=== PATIENT | male | born 1990 | race Caucasian/White ===

== ENCOUNTER 2023-10-16 19:10 | Emergency (ER) | payer OTHER, SELFPAY ==
[2023-10-16 19:11] VITALS: BP 167/114; BMI 40.1
[2023-10-16 19:27] VITALS: BP 144/99
[2023-10-16] MEDS: ADRENALIN 0.299999999999999989 MG IM (19:34)
[2023-10-16] MEDS: DECADRON 10 MG IV (19:42)
[2023-10-16] MEDS: PEPCID 20 MG IV (19:43)
[2023-10-16] MEDS: NSS 1000 IV (19:43)
[2023-10-16 20:00] VITALS: BP 143/99
--- NOTE | 2023-10-16 20:22 | ED.GENMED ---
History of Present Illness
General
Chief Complaint: Allergic Reaction
Source: patient
Time Seen by Provider: 10/16/23 19:33
Travel History
Have you had any contact with someone who has COVID-19?: No
Do you have any symptoms of coronavirus? Fever > 100 degrees, chills, cough, shortness of breath, sore throat, loss of taste or smell, muscle aches, or headache?: No
History of Present Illness
History of Present Illness:
43-year-old male presents emergency room complaining of a allergic reaction. Patient was eating at a [employer] restaurant. He states he was to be receiving food from a 'fish free grill'. Evidently there was some exposure to fish as when he consumed
his food immediately began having symptoms of an allergic reaction. Patient is also allergic to fish. He began having difficulty speaking, lip swelling, rash and itching on his way home from dinner. Patient does have an EpiPen but it was not with
him at the time.
Past History
Past History
ED Past Medical History: Asthma, HTN, Seizures, Psychiatric (Anxiety, Depression, PTSD), Other (TBI, CTE, chronic headaches, chronic neck and back pain, h/o B12 deficiency in 2014, bladder incontinence treated at [place], R hip infection at 5 y/o
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
ED Past Surgical History: Appendectomy, Orthopedic (L3-4 dislocation w/ surgery w/o hardware, Pain pump back), Urological (Urethra widening as child) and Other (Abd surgery, Tongue surgery)
Patient has exhibited threatening behavior?: No
PSI?: No
Social History
Tobacco: Former smoker
Alcohol: None
Drug: None
Personal:
Living: with family
Employment: Employed ([employer])
Family History
Family History: Diabetes and CAD; Negative Early CAD
Phy Exam
Physical Exam
Physical Exam:
General: Awake, Alert, Oriented X3. No acute distress.
Vitals: unremarkable
Head: Atraumatic
Eyes: Pupils equal, EOMI
Mouth: No oral angioedema, mild lip swelling and facial flushing
Throat: Airway intact, no exudates, hoarse voice
Neck: Trachea midline
Lungs: Clear and equal b/l
Heart: Regular rate, no murmurs
Abd: Soft, Nontender, No pulsatile mass
Neuro: Nonfocal
Skin: Warm, dry, blotchy urticarial rash
Extremities: pulses equal b/l, no edema
Course
Orders/Labs/Results
Orders:
Orders
10/16/23 19:28
EPINEPHrine PF [Adrenalin] 0.3 mg IM NOW STA
10/16/23 19:34
0.9% Sodium Chloride 1000 ml [Nss] 1,000 ml IV BOLUS
Dexamethasone Sod Phosphate [Decadron] 10 mg IV NOW STA
Famotidine [Pepcid] 20 mg IV NOW STA
Vital Signs
Initial and Last Documented VS:
Initial Vital Signs
Temp Pulse Resp BP Pulse Ox
98.8 F 112 30 167/114 95
10/16/23 19:11 10/16/23 19:11 10/16/23 19:11 10/16/23 19:11 10/16/23 19:11
Last Documented Vital Signs
Temp Pulse Resp BP Pulse Ox
98.8 F 104 13 142/84 95
10/16/23 19:11 10/16/23 22:30 10/16/23 22:30 10/16/23 22:00 10/16/23 22:30
MDM/Problems Addressed
Differential Diagnosis Includes:
Allergic reaction, anaphylactic reaction
MDM/Problems Addressed:
Patient presents with rash, facial swelling, sensation of throat closing. Patient significant, Benadryl, Pepcid. He was observed for couple hours with no rebound. Patient anxious to go home. Will discharge with a EpiPen prescription as well as
prednisone.
*Pulse Oximetry
Patient hypoxic: no
*Critical Care Note
Total Time (30-74mins, 75-104mins- exclusive of procedures): Not Applicable
ED Attending Note
-
Portions of this chart may have been created with voice recognition software.� Occasional wrong word or��sound alike� substitutions may have occurred due to the inherent limitations of voice recognition software.
Discharge Plan
Departure
Patient Disposition: Home (Routine Discharge)
Date of Disposition: 10/16/23
Time of Disposition: 22:16
Patient with high blood pressure during this ER visit?: Yes
Condition: Good
Discharge Problem:
Allergic reaction
Instructions: Allergic Reaction ED
Prescriptions:
New
epinephrine [EpiPen] 0.3 mg/0.3 mL auto-injector
0.3 mg IM ONCE PRN (Reason: anaphylaxis) Qty: 2 0RF
prednisone 20 mg tablet
40 mg PO DAILY 3 Days Qty: 6 0RF
No Action
ondansetron 4 MG tablet,disintegrating
8 mg PO TID PRN (Reason: nausea)
famotidine 40 mg Tablet
40 mg PO DAILY
fenofibrate micronized 67 mg Capsule
67 mg PO DAILY
Ubrelvy 50 mg Tablet
50 mg PO ONCE PRN (Reason: migraines)
Rx Instructions:
Max 10 days per month
celecoxib 200 mg capsule
100 mg PO BID
amitriptyline 50 mg Tablet
100 mg PO HS
cyanocobalamin (vitamin B-12) 1,000 mcg/mL solution
1,000 mcg IM TID
fluticasone propionate [Flovent HFA] 220 mcg/actuation HFA aerosol inhaler
2 puff inhalation R BID
azelastine 137 mcg (0.1 %) aerosol,spray
2 spray INTRANASAL BID PRN (Reason: allergies)
albuterol sulfate 90 mcg/actuation HFA aerosol inhaler
2 puff INHALATION R Q6 PRN (Reason: sob/wheezing)
rosuvastatin 10 mg tablet
10 mg PO HS
nebivolol 5 mg tablet
5 mg PO DAILY
Morphine/Clonidine Pain Pump
1 dose continuous epidural .CONTINUOUS
pantoprazole [Protonix] 40 mg tablet,delayed release (DR/EC)
40 mg PO HS
pregabalin 100 mg Capsule
100 mg PO HS Qty: 30 0RF
lacosamide 200 mg Tablet
200 mg PO BID Qty: 60 0RF
diazepam 2 mg Tablet
1 mg PO HSPRN PRN (Reason: insomnia, hold if drowsy) Qty: 10 0RF
Referrals:
UNKNOWN - PT DOES,NOT KNOW [Unknown Provider] -
Interventions
Interventions:
*Risk Screen - Suicide Last Done: 10/16/23 19:11
*General Assessment Last Done: 10/16/23 19:11
*Neglect/Abuse Screening Last Done: 10/16/23 19:11
ED- Fall Risk Assessment Last Done: 10/16/23 22:37
*ED COVID-19 Vaccine History Last Done: 10/16/23 19:11
*Nursing Disposition Last Done: 10/16/23 22:38
ED- Cardiac Assessment Last Done: 10/16/23 19:20
ED- Pulmonary Assessment Last Done: 10/16/23 19:20
ED-Skin Assessment Last Done: 10/16/23 19:20
Discharge Date and Time
Discharge Date/Time: 10/16/23 22:38
Print Language: AFGHAN
[2023-10-16 21:00] VITALS: BP 156/80
[2023-10-16 22:00] VITALS: BP 142/84
== END 2023-10-16 22:38 | disposition home or self-care (01) ==
LOC: EMR 19:10
PROVIDERS: EMERGENCY PHYSICIAN Emergency Medicine; FAMILY PHYSICIAN Family Medicine
DX: T78.40XA Allergy, unspecified, initial encounter (principal); I10 Essential (primary) hypertension; Z87.891 Personal history of nicotine dependence
CPT/HCPCS: 99284; 96374; 96375; 96361 ×2; 96372

== ENCOUNTER 2024-02-01 18:51 | Emergency (ER) | payer OTHER, SELFPAY ==
[2024-02-01 18:56] VITALS: BP 174/118
[2024-02-01 19:14] LABS: % Basophils 0.5 % (0-2); % Eosinophils 1.1 % (0-6); % Immature Granulocytes 0.4 % (0-0.5); % Lymphocytes 23.6 % (20.5-51.1); % Monocytes 4.7 % (1.7-9.3); % Neutrophils 69.7 % (42.2-75.2); Absolute Basophils 0.1 10^3/uL (0-0.2); Absolute Eosinophils 0.1 10^3/uL (0-0.7); Absolute Immature Granulocytes 0.1 10^3/uL (0-0.05); Absolute Lymphocytes 2.7 10^3/uL (1.2-3.4); Absolute Monocytes 0.5 10^3/uL (0.1-0.6); Absolute Neutrophils 7.8 10^3/uL (1.4-6.5); Hemoglobin 14.9 g/dL (13.0-18.0); Mean Corp Hgb Conc. 37.3 g/dL (33.0-37.0); Mean Corpuscular Hgb 31.7 pg (27.0-31.0); Mean Corpuscular Volume 85.1 fL (80.0-94.0); Mean Platelet Volume 9.3 fL (7.4-10.4); Nucleated Red Blood Cells % 0 % (-); Platelet Count 305 10^3/uL (130-400); Red Cell Dist. Width 11.6 % (11.5-14.5); White Blood Cell Count 11.2 10^3/uL (4.8-10.8)
[2024-02-01 19:38] LABS: ALT (SGPT) 34 U/L (0-50); AST (SGOT) 26 U/L (17-59); Albumin 4.6 g/dl (3.5-5.0); Alkaline Phosphatase 81 U/L (38-126); Blood Urea Nitrogen 15 mg/dl (9-20); Calcium 9.4 mg/dl (8.4-10.2); Carbon Dioxide 24 mmol/L (22-30); Chloride 102 mmol/L (98-107); Glucose 167 mg/dl (70-99); Potassium 3.6 mmol/L (3.5-5.1); Sodium 137 mmol/L (135-145); Total Bilirubin 0.7 mg/dl (0.2-1.3); Total Protein 6.8 g/dl (6.3-8.2); eGFR > 60.00
[2024-02-01 19:45] LABS: Troponin I < 0.012 ng/ml
[2024-02-01 20:08] VITALS: BMI 39.2
[2024-02-01 20:13] VITALS: BP 154/114
[2024-02-01 20:14] VITALS: BP 154/114
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
[2024-02-01 21:00] VITALS: BP 139/99
[2024-02-01 22:00] VITALS: BP 125/107
[2024-02-01 22:24] LABS: Urine Albumin Trace (Neg - Trace); Urine Bilirubin 1+ (Negative); Urine Character Clear (Clear); Urine Color Yellow; Urine Glucose Negative (Negative); Urine Ketone Trace (Negative); Urine Leukocyte Trace (Negative); Urine Nitrite Negative (Negative); Urine Occult Blood Negative (Negative); Urine Specific Gravity 1.025 (<1.030); Urine Urobilinogen Negative (Neg - 1+)
[2024-02-01 23:00] LABS: Troponin I < 0.012 ng/ml
[2024-02-01 23:04] VITALS: BP 153/114
[2024-02-01 23:12] LABS: Urine Red Blood Cell 0-2 /HPF (0-2)
[2024-02-02] VITALS: BP 143/96
[2024-02-02] MEDS: MONUROL 3 GM PO (00:29)
== END 2024-02-02 00:32 | disposition home or self-care (01) ==
LOC: EMR 18:51
PROVIDERS: Student in an Organized Health Care Education/Training Program; EMERGENCY PHYSICIAN Student in an Organized Health Care Education/Training Program; FAMILY PHYSICIAN Family Medicine
DX: R07.89 Other chest pain (principal); N39.0 Urinary tract infection, site not specified; I10 Essential (primary) hypertension; Z87.891 Personal history of nicotine dependence
CPT/HCPCS: 99285; 70450; 80053; 81003; 81015; 84484; 85025; 87086; 93005

== ENCOUNTER → 2024-07-01 06:29 | Day surgery (SDC) | payer OTHER, SELFPAY ==
[2024-07-01 14:10] LABS: Glucose - Point of Care 145 mg/dl (70-99)
[2024-07-01 14:49] LABS: Glucose - Point of Care 125 mg/dl (70-99)
== END ==
LOC: GI 06:29
PROVIDERS: ATTENDING PHYSICIAN Internal Medicine Gastroenterology; FAMILY PHYSICIAN Family Medicine
DX: K29.80 Duodenitis without bleeding (principal); K31.89 Other diseases of stomach and duodenum; R10.13 Epigastric pain; R11.0 Nausea
CPT/HCPCS: 43239; 88305; 82962; 88342

== ENCOUNTER → 2024-07-30 06:22 | Day surgery (SDC) | payer OTHER, SELFPAY ==
[2024-07-30 07:37] LABS: Glucose - Point of Care 140 mg/dl (70-99)
== END ==
LOC: GI 06:22
PROVIDERS: ATTENDING PHYSICIAN Internal Medicine Gastroenterology
DX: R19.4 Change in bowel habit (principal); K64.8 Other hemorrhoids; K57.30 Diverticulosis of large intestine without perforation or abscess without bleeding; Z80.0 Family history of malignant neoplasm of digestive organs
CPT/HCPCS: 45380; 88305; 82962

== ENCOUNTER 2024-08-16 23:51 | Emergency (ER) | payer OTHER, SELFPAY ==
[2024-08-16 23:56] VITALS: BP 170/102
[2024-08-17 00:38] VITALS: BP 153/99
[2024-08-17 00:44] LABS: % Basophils 0.6 % (0-2); % Eosinophils 1.8 % (0-6); % Immature Granulocytes 1.4 % (0-0.5); % Lymphocytes 28.6 % (20.5-51.1); % Monocytes 5.8 % (1.7-9.3); % Neutrophils 61.8 % (42.2-75.2); Absolute Basophils 0.1 10^3/uL (0-0.2); Absolute Eosinophils 0.2 10^3/uL (0-0.7); Absolute Immature Granulocytes 0.2 10^3/uL (0-0.05); Absolute Monocytes 0.6 10^3/uL (0.1-0.6); Absolute Neutrophils 6.5 10^3/uL (1.4-6.5); Hemoglobin 13.7 g/dL (13.0-18.0); Mean Corp Hgb Conc. 36.1 g/dL (33.0-37.0); Mean Platelet Volume 9.6 fL (7.4-10.4); Nucleated Red Blood Cells % 0 % (-); Platelet Count 279 10^3/uL (130-400); Red Blood Cell Count 4.42 10^6/uL (4.70-6.10); Red Cell Dist. Width 11.9 % (11.5-14.5); White Blood Cell Count 10.5 10^3/uL (4.8-10.8)
[2024-08-17 00:56] VITALS: BMI 39.4
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
[2024-08-17 01:00] VITALS: BP 163/97
[2024-08-17 01:12] LABS: Troponin I < 0.012 ng/ml
[2024-08-17] MEDS: SOLU-CORTEF 200 MG IV (01:15)
[2024-08-17 01:17] LABS: ALT (SGPT) 31 U/L (0-50); AST (SGOT) 25 U/L (17-59); Albumin 4.1 g/dl (3.5-5.0); Alkaline Phosphatase 88 U/L (38-126); Blood Urea Nitrogen 22 mg/dl (9-20); Carbon Dioxide 27 mmol/L (22-30); Chloride 98 mmol/L (98-107); Estimated Creatinine Clearance > 125 ml/min; Glucose 185 mg/dl (70-99); Lipase 77 U/L (23-300); Potassium 3.5 mmol/L (3.5-5.1); Sodium 137 mmol/L (135-145); Total Bilirubin 0.4 mg/dl (0.2-1.3); Total Protein 6.5 g/dl (6.3-8.2); eGFR > 60.00
[2024-08-17] MEDS: BENADRYL 50 MG IV (01:17)
[2024-08-17] MEDS: MORPHINE SULFATE 4 MG IV ×2 (01:17→02:49)
[2024-08-17 02:40] VITALS: BP 142/96
[2024-08-17 03:00] VITALS: BP 136/89
== END 2024-08-17 04:10 | disposition home or self-care (01) ==
LOC: EMR 23:51
PROVIDERS: Emergency Medicine; EMERGENCY PHYSICIAN Emergency Medicine; FAMILY PHYSICIAN Family Medicine
DX: R07.9 Chest pain, unspecified (principal); G89.29 Other chronic pain; M54.9 Dorsalgia, unspecified; I10 Essential (primary) hypertension; J45.909 Unspecified asthma, uncomplicated; Z87.891 Personal history of nicotine dependence; Z87.820 Personal history of traumatic brain injury
CPT/HCPCS: 99284; 96374; 96375; 96376; 71275; 74174; 80053; 83690; 84484; 85025; 93005; Q9967

== ENCOUNTER → 2024-08-26 14:15 | Outpatient (REF) | payer OTHER, SELFPAY | LOC: HWRAD 14:15 | PROVIDERS: ATTENDING PHYSICIAN Neurological Surgery; FAMILY PHYSICIAN Family Medicine | DX: R10.9 Unspecified abdominal pain (principal); T85.840A Pain due to nervous system prosthetic devices, implants and grafts, initial encounter | CPT/HCPCS: 74150 ==

== ENCOUNTER 2024-12-10 12:01 | Emergency (ER) | payer OTHER, SELFPAY ==
[2024-12-10 12:12] VITALS: BP 146/95
[2024-12-10 12:26] LABS: % Basophils 0.5 % (0-2); % Eosinophils 2.8 % (0-6); % Immature Granulocytes 0.1 % (0-0.5); % Lymphocytes 24.5 % (20.5-51.1); % Monocytes 5.3 % (1.7-9.3); % Neutrophils 66.8 % (42.2-75.2); Absolute Eosinophils 0.2 10^3/uL (0-0.7); Absolute Lymphocytes 1.8 10^3/uL (1.2-3.4); Absolute Monocytes 0.4 10^3/uL (0.1-0.6); Hemoglobin 14.4 g/dL (13.0-18.0); Mean Corp Hgb Conc. 34.3 g/dL (33.0-37.0); Mean Corpuscular Hgb 30.3 pg (27.0-31.0); Mean Corpuscular Volume 88.2 fL (80.0-94.0); Mean Platelet Volume 9.3 fL (7.4-10.4); Nucleated Red Blood Cells % 0 % (-); Platelet Count 289 10^3/uL (130-400); Red Blood Cell Count 4.76 10^6/uL (4.70-6.10); Red Cell Dist. Width 11.5 % (11.5-14.5); White Blood Cell Count 7.4 10^3/uL (4.8-10.8)
[2024-12-10 12:45] LABS: ALT (SGPT) 63 U/L (0-50); AST (SGOT) 34 U/L (17-59); Albumin 4.7 g/dl (3.5-5.0); Alkaline Phosphatase 90 U/L (38-126); Blood Urea Nitrogen 12 mg/dl (9-20); Calcium 9.3 mg/dl (8.4-10.2); Carbon Dioxide 28 mmol/L (22-30); Chloride 105 mmol/L (98-107); Glucose 102 mg/dl (70-99); Lipase 61 U/L (23-300); Potassium 4.2 mmol/L (3.5-5.1); Sodium 141 mmol/L (135-145); Total Bilirubin 0.7 mg/dl (0.2-1.3); Total Protein 7.6 g/dl (6.3-8.2); eGFR > 60.00
[2024-12-10 13:51] VITALS: BMI 39.9
[2024-12-10 14:00] VITALS: BP 136/86
--- NOTE | 2024-12-10 14:07 | ED.GENMED ---
History of Present Illness
General
Chief Complaint: Abdominal Symptoms
Source: patient
Exam Limitations: none
Time Seen by Provider: 12/10/24 13:56
History of Present Illness
History of Present Illness:
34yoM with a history of seizures, type 2 diabetes, hyperlipidemia, obesity, and chronic back pain with intrathecal pain pump presenting for evaluation of vomiting. Patient was started on Mounjaro about a month ago for his diabetes and for weight
loss. He has had issues with constipation since then. He is only passing a small amount of stool at a time but feels the urge to have a bowel movement constantly. He has tried OTC laxatives without any improvement. Last bowel movement was 48
hours ago. He had two episodes of vomiting this morning which appeared similar to feces and was also foul tasting. He subsequently developed some abdominal pain, primarily in the RUQ. He is passing flatus. He denies any fevers or difficulty
urinating. Previous abdominal surgeries include an appendectomy and cholecystectomy.
Past History
Past History
ED Past Medical History: Asthma, HTN, Seizures, Psychiatric (Anxiety, Depression, PTSD), Other (TBI, CTE, chronic headaches, chronic neck and back pain, h/o B12 deficiency in 2015, bladder incontinence treated at [facility], R hip infection at 5 y/o
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
ED Past Surgical History: Appendectomy, Orthopedic (L3-4 dislocation w/ surgery w/o hardware, Pain pump back), Urological (Urethra widening as child) and Other (Abd surgery, Tongue surgery)
Patient has exhibited threatening behavior?: No
PSI?: No
Social History
Tobacco: Former smoker
Alcohol: None
Drug: None
Personal:
Living: with family
Employment: Employed ([employer])
Family History
Family History: Diabetes and CAD; Negative Early CAD
Phy Exam
General Physical Exam
General Presentation: well appearing and no apparent distress
General Skin: warm and dry
General Habitus: normal
General Mental: alert
ENT Exam
ENT Exam: normocephalic
Pulmonary Exam
Pulmonary Exam: no respiratory distress
Gastrointestinal Exam
Gastrointestinal Exam: soft, non distended and other (Abdomen obese. Normoactive bowel sounds. +Generalized tenderness, worse in the RUQ. No rebound or guarding.)
Neurological Exam
Neurological Exam: alert
Cohagen Coma Scale
Eye Opening: Spontaneous
Verbal Response: Oriented
Motor Response: Obeys Commands
GCS Total Score: 15
Skin Exam
Skin Exam: normal color and warm/dry
Psychiatric Exam
Psychiatric Exam: normal mood/affect
Course
Orders/Labs/Results
Orders:
Orders
12/10/24 12:18
Complete Blood Count/With Diff Urgent
Comprehensive Metabolic Panel Urgent
Lipase Urgent
12/10/24 14:05
0.9% Sodium Chloride 1000 ml [Nss] 1,000 ml IV BOLUS
12/10/24 14:06
CT Abd/pelvis W Iv Cont Urgent
Comment:
Reason For Exam: R sided abd pain, constipation, vomiting
Diphenhydramine [Benadryl] 50 mg IV NOW STA
Hydrocortisone Sod Succinate [Solu-Cortef] 200 mg IV NOW STA
Ondansetron Injectable [Zofran] 4 mg IV NOW STA
Abnormal Lab Results
12/10/24
12:18
Glucose 102 H mg/dl
(70-99)
ALT 63 H U/L
(0-50)
12/10/24 12:18
12/10/24 12:18
Vital Signs
Initial and Last Documented VS:
Initial Vital Signs
Pulse Resp Pulse Ox
72 16 99
12/10/24 12:10 12/10/24 12:10 12/10/24 12:10
Last Documented Vital Signs
Temp Pulse Resp BP Pulse Ox
97.8 F 68 16 136/75 98
12/10/24 12:12 12/10/24 14:00 12/10/24 14:00 12/10/24 16:00 12/10/24 16:00
MDM/Problems Addressed
Differential Diagnosis Includes:
34yoM here with vomiting x 2 today with RUQ abd pain. Has been constipated x 1 month since starting Mounjaro. Emesis was foul tasting and appeared feculent. Hx of appendectomy and cholecystectomy. VSS. He is non-toxic appearing. No signs of
peritonitis on abdominal exam. Differential diagnosis includes but is not limited to: constipation, SBO, colitis, pancreatitis
Initial ED plan: Abdominal labs obtained in triage which are unremarkable. Will obtain CT abdomen with IV contrast. Pretreatment ordered given prior history of contrast allergy.
*Critical Care Note
Total Time (30-74mins, 75-104mins- exclusive of procedures): Not Applicable
Update Note
Update Note:
CT is negative for acute findings. Specifically, there is no evidence of small bowel obstruction. No significant constipation or fecal impaction on my review of CT. There has been no vomiting during ED stay. No indication for hospitalization.
Recommended magnesium citrate for constipation and f/u with PCP. Patient discharged in stable condition.
ED Attending Note
-
Portions of this chart may have been created with voice recognition software.� Occasional wrong word or��sound alike� substitutions may have occurred due to the inherent limitations of voice recognition software.
Discharge Plan
Departure
Patient Disposition: Home (Routine Discharge)
Date of Disposition: 12/10/24
Time of Disposition: 16:14
Patient with high blood pressure during this ER visit?: Yes
Discharge Problem:
Abdominal pain, Constipation
Instructions: Constipation, Adult (DC)
Prescriptions:
No Action
ondansetron 4 MG tablet,disintegrating
8 mg PO TID PRN (Reason: nausea)
famotidine 40 mg Tablet
40 mg PO DAILY
fenofibrate micronized 67 mg Capsule
67 mg PO DAILY
Ubrelvy 50 mg Tablet
50 mg PO ONCE PRN (Reason: migraines)
Rx Instructions:
Max 10 days per month
celecoxib 200 mg capsule
100 mg PO BID
amitriptyline 50 mg Tablet
100 mg PO HS
cyanocobalamin (vitamin B-12) 1,000 mcg/mL solution
1,000 mcg IM TID
fluticasone propionate [Flovent HFA] 220 mcg/actuation HFA aerosol inhaler
2 puff inhalation R BID
azelastine 137 mcg (0.1 %) aerosol,spray
2 spray INTRANASAL BID PRN (Reason: allergies)
albuterol sulfate 90 mcg/actuation HFA aerosol inhaler
2 puff INHALATION R Q6 PRN (Reason: sob/wheezing)
rosuvastatin 10 mg tablet
10 mg PO HS
nebivolol 5 mg tablet
5 mg PO DAILY
Morphine/Clonidine Pain Pump
1 dose continuous epidural .CONTINUOUS
pantoprazole [Protonix] 40 mg tablet,delayed release (DR/EC)
40 mg PO HS
pregabalin 100 mg Capsule
100 mg PO HS Qty: 30 0RF
lacosamide 200 mg Tablet
200 mg PO BID Qty: 60 0RF
diazepam 2 mg Tablet
1 mg PO HSPRN PRN (Reason: insomnia, hold if drowsy) Qty: 10 0RF
epinephrine [EpiPen] 0.3 mg/0.3 mL auto-injector
0.3 mg IM ONCE PRN (Reason: anaphylaxis) Qty: 2 0RF
prednisone 20 mg tablet
40 mg PO DAILY 3 Days Qty: 6 0RF
Referrals:
Andressa Foy DO [Family Provider] -
Activity Restrictions/Additional Instructions:
Increase your fluid and fiber intake. Take magnesium citrate to help with your constipation.
Please follow-up with your family doctor in 2-3 days. Return to the ER with any new or worsening symptoms.
Interventions
Interventions:
*Risk Screen - Suicide Last Done: 12/10/24 14:01
*General Assessment Last Done: 12/10/24 13:52
*Neglect/Abuse Screening Last Done: 12/10/24 14:01
*ED- Fall Risk Assessment Last Done: 12/10/24 13:52
*ED COVID-19 Vaccine History Last Done: 12/10/24 13:52
*Nursing Disposition Last Done: 12/10/24 16:36
[facility] Assessment Last Done: 12/10/24 14:01
Discharge Date and Time
Discharge Date/Time: 12/10/24 16:40
Print Language: YORUBA
[2024-12-10] MEDS: BENADRYL 50 MG IV (14:21)
[2024-12-10] MEDS: ZOFRAN 4 MG IV (14:21)
[2024-12-10] MEDS: NSS 1000 IV (14:21)
[2024-12-10] MEDS: SOLU-CORTEF 200 MG IV (14:22)
[2024-12-10 15:00] VITALS: BP 160/101
[2024-12-10 15:50] VITALS: BP 148/79
[2024-12-10 16:00] VITALS: BP 136/75
== END 2024-12-10 16:40 | disposition home or self-care (01) ==
LOC: EMR 12:01
PROVIDERS: Emergency Medicine; EMERGENCY PHYSICIAN Emergency Medicine; FAMILY PHYSICIAN Family Medicine
DX: R10.9 Unspecified abdominal pain (principal); K59.00 Constipation, unspecified; I10 Essential (primary) hypertension; E11.9 Type 2 diabetes mellitus without complications; E78.5 Hyperlipidemia, unspecified; E66.9 Obesity, unspecified; Z68.39 Body mass index [BMI] 39.0-39.9, adult; Z87.891 Personal history of nicotine dependence
CPT/HCPCS: 99285; 96374; 96375 ×2; 96361; 74177; 80053; 83690; 85025; Q9967

== ENCOUNTER 2024-12-27 21:09 | Emergency (ER) | payer OTHER, SELFPAY ==
[2024-12-27 21:19] VITALS: BP 178/105
[2024-12-27 21:38] LABS: % Basophils 0.4 % (0-2); % Eosinophils 3.1 % (0-6); % Immature Granulocytes 0.3 % (0-0.5); % Lymphocytes 23.9 % (20.5-51.1); % Monocytes 5.5 % (1.7-9.3); % Neutrophils 66.8 % (42.2-75.2); Absolute Eosinophils 0.3 10^3/uL (0-0.7); Absolute Lymphocytes 2.2 10^3/uL (1.2-3.4); Absolute Monocytes 0.5 10^3/uL (0.1-0.6); Absolute Neutrophils 6.3 10^3/uL (1.4-6.5); Hematocrit 39.2 % (39.0-52.0); Hemoglobin 14.1 g/dL (13.0-18.0); Mean Corpuscular Hgb 30.9 pg (27.0-31.0); Mean Platelet Volume 9.1 fL (7.4-10.4); Nucleated Red Blood Cells % 0 % (-); Platelet Count 302 10^3/uL (130-400); Red Blood Cell Count 4.56 10^6/uL (4.70-6.10); Red Cell Dist. Width 11.4 % (11.5-14.5); White Blood Cell Count 9.4 10^3/uL (4.8-10.8)
[2024-12-27 21:42] VITALS: BMI 39.1
[2024-12-27 21:47] VITALS: BP 122/82
[2024-12-27 21:57] LABS: ALT (SGPT) 42 U/L (0-50); AST (SGOT) 24 U/L (17-59); Albumin 4.3 g/dl (3.5-5.0); Alkaline Phosphatase 82 U/L (38-126); Blood Urea Nitrogen 20 mg/dl (9-20); Calcium 9.1 mg/dl (8.4-10.2); Carbon Dioxide 26 mmol/L (22-30); Chloride 108 mmol/L (98-107); Estimated Creatinine Clearance > 125 ml/min; Glucose 115 mg/dl (70-99); Sodium 142 mmol/L (135-145); Total Bilirubin 0.6 mg/dl (0.2-1.3); eGFR > 60.00
[2024-12-27 22:00] VITALS: BP 118/78
[2024-12-27 22:13] LABS: COVID-19 Antigen Negative (Negative)
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
[2024-12-27 23:00] VITALS: BP 118/65
[2024-12-27 23:45] LABS: Urine Albumin 1+ (Neg - Trace); Urine Bilirubin Negative (Negative); Urine Character Clear (Clear); Urine Color Yellow; Urine Glucose Negative (Negative); Urine Ketone Negative (Negative); Urine Leukocyte Negative (Negative); Urine Nitrite Negative (Negative); Urine Occult Blood Negative (Negative); Urine Urobilinogen Negative (Neg - 1+)
[2024-12-28] VITALS: BP 138/88
[2024-12-28] MEDS: NSS 1000 IV (01:07)
[2024-12-28 01:09] VITALS: BP 134/86
[2024-12-28 02:00] VITALS: BP 150/85
[2024-12-28] MEDS: TYLENOL 1000 MG PO (02:04)
[2024-12-28] MEDS: ZOFRAN 4 MG IV (02:07)
[2024-12-28 03:00] VITALS: BP 144/92
== END 2024-12-28 03:33 | disposition home or self-care (01) ==
LOC: EMR 21:09
PROVIDERS: Emergency Medicine; EMERGENCY PHYSICIAN Student in an Organized Health Care Education/Training Program
DX: R41.82 Altered mental status, unspecified (principal); R51.9 Headache, unspecified; J45.909 Unspecified asthma, uncomplicated; I10 Essential (primary) hypertension; F41.9 Anxiety disorder, unspecified; F43.10 Post-traumatic stress disorder, unspecified; E11.40 Type 2 diabetes mellitus with diabetic neuropathy, unspecified; Z82.49 Family history of ischemic heart disease and other diseases of the circulatory system; Z83.3 Family history of diabetes mellitus; Z86.16 Personal history of COVID-19; Z87.820 Personal history of traumatic brain injury; Z87.891 Personal history of nicotine dependence
CPT/HCPCS: 99284; 96374; 70450; 80053; 81003; 81015; 85025; 87502; 87811

== ENCOUNTER 2025-06-08 15:12 | Emergency (ER) | payer OTHER, SELFPAY ==
[2025-06-08] VITALS (7 sets, daily range): BP systolic 139–160; BP diastolic 89–100; BMI 40.5
[2025-06-08 16:19] LABS: Hematocrit 44.6 % (39.0-52.0); Hemoglobin 16.2 g/dL (13.0-18.0); Mean Corp Hgb Conc. 36.3 g/dL (33.0-37.0); Mean Corpuscular Volume 83.7 fL (80.0-94.0); Nucleated Red Blood Cells % 0 % (-); Platelet Count 350 10^3/uL (130-400); Red Cell Dist. Width 11.7 % (11.5-14.5)
[2025-06-08 16:38] LABS: ALT (SGPT) 41 U/L (0-50); AST (SGOT) 25 U/L (17-59); Albumin 5.2 g/dl (3.5-5.0); Alkaline Phosphatase 95 U/L (38-126); Blood Urea Nitrogen 15 mg/dl (9-20); Calcium 10.1 mg/dl (8.4-10.2); Carbon Dioxide 25 mmol/L (22-30); Chloride 101 mmol/L (98-107); Glucose 115 mg/dl (70-99); Potassium 4.1 mmol/L (3.5-5.1); Sodium 136 mmol/L (135-145); Total Protein 8.3 g/dl (6.3-8.2); eGFR > 60.00
--- NOTE | 2025-06-08 17:01 | ED.GENMED ---
History of Present Illness
General
Chief Complaint: Seizure
Source: patient
Time Seen by Provider: 06/08/25 16:39
History of Present Illness
History of Present Illness:
See MDM
Past History
Past History
ED Past Medical History: Asthma, HTN, Seizures, Psychiatric (Anxiety, Depression, PTSD), Other (TBI, CTE, chronic headaches, chronic neck and back pain, h/o B12 deficiency in 2015, bladder incontinence treated at [place], R hip infection at 5 y/o
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
ED Past Surgical History: Appendectomy, Orthopedic (L3-4 dislocation w/ surgery w/o hardware, Pain pump back), Urological (Urethra widening as child) and Other (Abd surgery, Tongue surgery)
Patient has exhibited threatening behavior?: No
PSI?: No
Social History
Tobacco: Former smoker
Alcohol: None
Drug: None
Personal:
Living: with family
Employment: Employed ([employer])
Family History
Family History: Diabetes and CAD; Negative Early CAD
Phy Exam
Physical Exam
Physical Exam:
See MDM
Course
Orders/Labs/Results
Orders:
Orders
06/08/25 16:14
Complete Blood Count/With Diff Urgent
Comprehensive Metabolic Panel Urgent
06/08/25 16:55
Rapid EEG [Rapid Point of Care EEG (ED/ICU ONLY)] Q1H
Indications for use:: History of Epilepsy
Abnormal Lab Results
06/08/25
16:14
Absolute Neuts (auto) 7.1 H 10^3/uL
(1.4-6.5)
Glucose 115 H mg/dl
(70-99)
Total Protein 8.3 H g/dl
(6.3-8.2)
Albumin 5.2 H g/dl
(3.5-5.0)
06/08/25 16:14
06/08/25 16:14
Vital Signs
Initial and Last Documented VS:
Initial Vital Signs
Temp Pulse Resp BP Pulse Ox
98.1 F 101 16 143/100 97
06/08/25 15:19 06/08/25 15:19 06/08/25 15:19 06/08/25 15:19 06/08/25 15:19
Last Documented Vital Signs
Temp Pulse Resp BP Pulse Ox
98.1 F 87 11 153/97 97
06/08/25 15:19 06/08/25 17:00 06/08/25 17:00 06/08/25 17:00 06/08/25 17:02
MDM/Problems Addressed
Differential Diagnosis Includes:
Note:
CHIEF COMPLAINT(S)
Seizures and inability to walk post-ictal.
HISTORY OF PRESENT ILLNESS
The patient is a 35-year-old male with a history of seizures and a prior back injury with a spinal pain pump in place. The patient reports experiencing at least four seizures today, followed by postictal states characterized by lethargy and
inability to walk. This morning, the patient was found groggy and non-responsive, sleeping for long hours. Upon waking in the afternoon, the patient reported inability to move legs and walk, stating, 'I cant get out of bed, cant walk, cant feel my
legs.' This leg weakness post-seizure is not a new symptom. Pt states this has happened in the past and had MRI to rule out cauda equina. The patient has a history of B12 deficiency, previously requiring injections. The patient notes rib pain upon
deep respiration, likely due to muscle contractions from seizures.
Medication history includes amitriptyline twice daily, recently missed due to pharmacy issues, resumed three weeks ago. Adjustment was made to discontinue the morning dose due to daytime lethargy. Additionally, the patient is on Vimpat (lacosamide)
for seizure management, with no recent dosage changes. The patient has experienced challenges with previous imaging due to the spinal pain pump.
CHRONIC MEDICAL CONDITIONS SIGNIFICANTLY AFFECTING CARE
Chronic conditions affecting care include a history of seizure disorder, spinal pain pump in place for back injury, and vitamin B12 deficiency.
SOCIAL DETERMINANTS OF HEALTH
The patient reports challenges in obtaining medications due to pharmacy issues and has experienced -related health effects, including PTSD and B12 deficiency, common in veterans.
PHYSICAL EXAM
General: Alert, no acute distress. Sitting in bed comfortably
Skin: Warm, dry.
Head: Normocephalic, atraumatic
Neck: Appears supple, trachea midline.
Eyes, Ears, Nose, Mouth, and Throat: Moist mucous membranes
Cardiovascular: No signs of cyanosis
Respiratory: Respirations are non-labored.
Abdomen: Non-distended
Musculoskeletal: No deformities
Neurological: Decree sensation to the distal aspect of both legs and feet. Decreased muscle strength. Pulses intact
Psychiatric: Cooperative, appropriate mood and affect.
PLAN
The plan involves consulting with a neurologist to address the seizure management and potential IV anticonvulsants. Admission for overnight observation for seizure management and monitoring is considered, pending neurologist recommendations.
DIFFERENTIAL DIAGNOSIS
The Differential Diagnosis includes, in no particular order and is not limited to:
- Postictal neurological deficits
- Spinal cord compression
- Cauda equina syndrome
- Central nervous system infection
- B12 deficiency neuropathy
- Seizure disorder progression
- Medication side effect
- Peripheral neuropathy
- Conversion disorder
- Metabolic deficiency
SUMMARY OF ENCOUNTER
The patient presented to the emergency department with seizures and inability to ambulate post-seizure. Given the new onset of leg weakness postictally, and the complexity of his medical history including a spinal pain pump and previous B12
deficiency, a thorough examination and collaboration with neurology are critical. Earlier missed doses of amitriptyline and potential medication side effects are considered in the management plan.
DISPOSITION
Admission for observation and further management, pending neurologist recommendations, was considered.
ASSESSMENT
The patients seizure activity with new postictal leg weakness raises concerns for central nervous system involvement or exacerbation of underlying conditions.
MANAGEMENT OF THE PATIENTS CARE WAS DISCUSSED WITH
Consultation with neurology is pending for recommendations regarding potential IV anticonvulsant use and further seizure management strategies.
MEDICAL DECISION MAKING
-Complexity of Data Reviewed: Chronic conditions affecting care include a seizure disorder, spinal pain pump, and vitamin B12 deficiency. Differential diagnosis considers various neurological and systemic causes for new postictal weakness.
-Data: Category 1
Discussion with neurologist pending for seizure management strategy and potential imaging contraindications due to the pain pump.
Category 2
Independent review of patients existing condition and medical history, focusing on past neurological evaluations.
Category 3
Consultation with neurology for management strategy and medication assessment.
-Risk: Prescription drug management with potential adjustments in anticonvulsant therapy due to the severity of seizures. Consideration of admitting the patient to monitor neurological status and response to therapy.
DIAGNOSIS
Post-seizure weakness [G40.909]
Seizure disorder [G40.909]
History of B12 deficiency [E53.8]
06/08/25 - 17:08
Patient to be placed on Cerebell to monitor for active seizure activity as per neurology consultation.
SUMMARY OF ENCOUNTER
The patient presented with breakthrough seizures and concerns regarding a possible status epilepticus, mentioned alongside bilateral leg weakness. Although he was not experiencing an active seizure upon arrival, there was a decision to place the
patient on continuous EEG monitoring to detect any underlying seizures. It was noted that the patient had previously been evaluated and ruled out for cauda equina syndrome, and there were instances where this condition required rehabilitation.
Neurology was informed about the current situation, and it was decided that lorazepam (Ativan) would be administered intermittently if needed. Due to the breakthrough seizures and associated difficulty walking, the decision was made to admit the
patient for further evaluation and management.
DISPOSITION
Admit
MANAGEMENT OF THE PATIENTS CARE WAS DISCUSSED WITH
Consultation with neurology has been conducted to organize management strategies and the potential need for intermittent lorazepam administration.
PLAN
Admission for further observation, management of breakthrough seizures, and evaluation of neurological status. The patient will be placed on continuous EEG to monitor for any underlying seizure activity.
MEDICATION RECONCILIATION
Intermittent lorazepam (Ativan) as needed, considering breakthrough seizures and neurological recommendations.
MEDICAL DECISION MAKING
-Complexity of Data Reviewed: Chronic conditions affecting care include seizure disorder, spinal pain pump, and history of vitamin B12 deficiency. Differential diagnosis considerations are postictal neurological deficits, spinal cord compression,
cauda equina syndrome, central nervous system infection, B12 deficiency neuropathy, seizure disorder progression, medication side effect, peripheral neuropathy, conversion disorder, and metabolic deficiency.
-Data:
Category 3: Discussion of management with neurology regarding further evaluation and treatment, including intermittent lorazepam administration if necessary.
CRITICAL CARE TIME
I provided critical care time due to a high probability of clinically significant, life-threatening deterioration, requiring my highest level of preparedness to intervene emergently. This included obtaining a history, examining the patient,
arranging urgent treatment, developing a management plan, evaluating the patient�s response, frequent reassessment, and consulting with other providers.
DIAGNOSIS
- Post-seizure weakness [G40.909]
- Seizure disorder [G40.909]
*Pulse Oximetry
SaO2: 97
Oxygen Mode of Delivery: Room air
Patient hypoxic: no
*Critical Care Note
Total Time (30-74mins, 75-104mins- exclusive of procedures): Not Applicable
Update Note
Update Note:
6 PM patient given a urinal because he had a sensation to urinate. Patient urinated without difficulty making cauda equina less likely
7 PM the admitting team evaluate the patient and suggested transfer to [facility]. I discussed the case with the neurology resident Dr. Silverio who will discuss case with her attending
7:50PM neurology called back indicating that this should be evaluated by his neurosurgeon at [facility]
8 PM case discussed with [facility] neurosurgical Dr. Kush Pandya who is aware of the patient. He suggested admission to the hospitalist team. I spoke to the hospitalist Dr. Evans who accepted the patient and will make this an urgent transfer
ED Attending Note
-
Portions of this chart may have been created with voice recognition software.� Occasional wrong word or��sound alike� substitutions may have occurred due to the inherent limitations of voice recognition software.
Discharge Plan
Departure
Patient Disposition: Acute [facility]
Date of Disposition: 06/08/25
Time of Disposition: 17:53
Admit to: Med/Surg
Discharge Problem:
Breakthrough seizure, Bilateral leg weakness
Prescriptions:
No Action
ondansetron 4 MG tablet,disintegrating
8 mg PO TID PRN (Reason: nausea)
famotidine 40 mg Tablet
40 mg PO DAILY
fenofibrate micronized 67 mg Capsule
67 mg PO DAILY
Ubrelvy 50 mg Tablet
50 mg PO ONCE PRN (Reason: migraines)
Rx Instructions:
Max 10 days per month
celecoxib 200 mg capsule
100 mg PO BID
amitriptyline 50 mg Tablet
100 mg PO HS
cyanocobalamin (vitamin B-12) 1,000 mcg/mL solution
1,000 mcg IM TID
fluticasone propionate [Flovent HFA] 220 mcg/actuation HFA aerosol inhaler
2 puff inhalation R BID
azelastine 137 mcg (0.1 %) aerosol,spray
2 spray INTRANASAL BID PRN (Reason: allergies)
albuterol sulfate 90 mcg/actuation HFA aerosol inhaler
2 puff INHALATION R Q6 PRN (Reason: sob/wheezing)
rosuvastatin 10 mg tablet
10 mg PO HS
nebivolol 5 mg tablet
5 mg PO DAILY
Morphine/Clonidine Pain Pump
1 dose continuous epidural .CONTINUOUS
pantoprazole [Protonix] 40 mg tablet,delayed release (DR/EC)
40 mg PO HS
pregabalin 100 mg Capsule
100 mg PO HS Qty: 30 0RF
lacosamide 200 mg Tablet
200 mg PO BID Qty: 60 0RF
diazepam 2 mg Tablet
1 mg PO HSPRN PRN (Reason: insomnia, hold if drowsy) Qty: 10 0RF
epinephrine [EpiPen] 0.3 mg/0.3 mL auto-injector
0.3 mg IM ONCE PRN (Reason: anaphylaxis) Qty: 2 0RF
prednisone 20 mg tablet
40 mg PO DAILY 3 Days Qty: 6 0RF
Referrals:
Andressa Foy DO [Family Provider, Family Practice]
Hospital Transfer
Other hospital: [facility]
I certify that the patient requires transfer: Yes
Discussed case with accepting physician: Dr. Evans
Reason for transfer: availability of service
Interventions
Interventions:
*Risk Screen - Suicide Last Done: 06/08/25 15:22
*General Assessment Last Done: 06/08/25 17:00
*Neglect/Abuse Screening Last Done: 06/08/25 15:22
*ED COVID-19 Vaccine History Last Done: 06/08/25 17:00
*ED Influenza Vaccine History Last Done: 06/08/25 17:00
ED- Cardiac Assessment Last Done: 06/08/25 17:00
ED- Neurological Assessment Last Done: 06/08/25 17:00
ED- Pulmonary Assessment Last Done: 06/08/25 17:00
Discharge Date and Time
Print Language: WELSH
--- NOTE | 2025-06-08 22:08 | CON.HOSP ---
Family Physician
-
Family Physician: Andressa Foy
Chief Complaint
-
seizure
History of Present Illness
35-year-old male past medical history of chronic back pain with intrathecal pain, history of traumatic spine injury falling off a [place] complicated by functional paraplegia status post spinal surgery, B12 deficiency, mild intermittent asthma,
hypertension, seizure disorder, anxiety/depression/PTSD, traumatic brain injury, chronic migraines, obesity, history of bladder incontinence, right ear deafness, presenting for multiple seizures today while sleeping today witnessed by . �When he
woke up after the seizure he could not move his legs or feel his legs.
He states that he had paraplegia originally after he fell off a [place] and had spine surgery. �He had another episode of paraplegia after a Moderna COVID-vaccine approximately 5 years ago which recovered with physical therapy. �He denies any history
of paraplegia with seizures.
He is currently able to urinate and able to have bowel movement and denies any numbness or tingling in the anal or genital region.
He currently denies any headache, lightheadedness, blurry vision or any other symptoms. �His neurologist is Dr. Montano at [place] and he had been feeling lethargic taking amitriptyline so she weaned him off of his morning dose of amitriptyline 4
days ago. �He also takes Vimpat and the dose has not been changed.
Patient cannot have MRI unless his intrathecal pain pump is emptied which is typically done by his pain management doctor at [place] with Dr. Welsh.
Medical History
Past Medical History
Past Medical History: Reports Other (chronic back pain with intrathecal pain, history of traumatic spine injury falling off a [place] complicated by functional paraplegia status post spinal surgery, B12 deficiency, mild intermittent asthma,
hypertension, seizure disorder, anxiety/depression/PTSD, traumatic brain injury, chronic migraines)
Past Surgical History: Reports Other (Appendectomy, Orthopedic (L3-4 dislocation w/ surgery w/o hardware, Pain pump back), Urological (Urethra widening as child) and Other (Abd surgery, Tongue surgery))
Social History
Tobacco: Non-smoker
Alcohol: None
Drug: None
Allergies / Home Medications
Allergies reflects when Allergies were last updated in [facility].
Home Medications with original date entered in [facility]
Allergy/Medication List:
Allergies
Allergy/AdvReac Type Severity Reaction Status Date / Time
bee venom protein (honey bee) Allergy Anaphylaxis Verified 12/27/24 21:25
fish derived Allergy Unknown Verified 12/27/24 21:25
Iodinated Contrast Media Allergy Anaphylaxis Verified 12/27/24 21:25
strawberry ([place]) Allergy Hives Verified 12/27/24 21:25
metoclopramide HCl (From AdvReac 'I flip Verified 12/27/24 21:25
Reglan) out'
prochlorperazine edisylate AdvReac 'I get Verified 12/27/24 21:25
(From Compazine) crazy'
Home Medications
famotidine 40 mg tablet 40 mg PO DAILY Gastrointestinal issue 02/22/22
fenofibrate micronized 67 mg capsule 67 mg PO DAILY High cholesterol 02/22/22
ondansetron 4 mg disintegrating tablet 8 mg PO TID PRN nausea 02/22/22
ubrogepant 50 mg tablet (Ubrelvy) 50 mg PO ONCE PRN migraines 02/22/22
amitriptyline 50 mg tablet 100 mg PO HS Depression 04/07/22
celecoxib 200 mg capsule 100 mg PO BID Pain 04/07/22
cyanocobalamin (vitamin B-12) 1,000 mcg/mL injection solution 1,000 mcg IM TID Supplement 04/07/22
Morphine/Clonidine Pain Pump 1 dose continuous epidural .CONTINUOUS Pain 10/22/22
albuterol sulfate 90 mcg/actuation aerosol inhaler 2 puff inhalation R Q6 PRN sob/wheezing 10/22/22
azelastine 137 mcg (0.1 %) nasal spray 2 spray intranasal BID PRN allergies 10/22/22
fluticasone propionate 220 mcg/actuation HFA aerosol inhaler (Flovent HFA) 2 puff inhalation R BID Congestion 10/22/22
nebivolol 5 mg tablet 5 mg PO DAILY Heart Failure 10/22/22
pantoprazole 40 mg tablet,delayed release (Protonix) 40 mg PO HS GI issues 10/22/22
rosuvastatin 10 mg tablet 10 mg PO HS High cholesterol 10/22/22
diazepam 2 mg tablet 1 mg (1/2 x 2 mg) PO HSPRN PRN insomnia, hold if drowsy #10 tabs 10/26/22
lacosamide 200 mg tablet 200 mg PO BID #60 tabs 10/26/22
pregabalin 100 mg capsule 100 mg PO HS #30 caps 10/26/22
epinephrine 0.3 mg/0.3 mL injection, auto-injector (EpiPen) 0.3 mg (0.3 mL) IM ONCE PRN anaphylaxis #2 ea 10/16/23
prednisone 20 mg tablet 40 mg (2 x 20 mg) PO DAILY 3 days #6 tabs 10/16/23
Review of Systems
-
History Source: Patient
A 12 point Review of Systems was completed except as noted: Yes
Constitutional: Reports No Symptoms
EENT: Reports No Symptoms
Respiratory: Reports No Symptoms
Cardiac: Reports No Symptoms
Abdomen/GI: Reports No Symptoms
: Reports No Symptoms
Musculoskeletal: Reports No Symptoms
Skin: Reports No Symptoms
Neurological: Reports No Symptoms
Endocrine: Reports No Symptoms
Hematologic/Lymphatic: Reports No Symptoms
Psych: Reports No Symptoms
Physical Exam
Vital Signs
Vital Signs
Temp Pulse Resp BP Pulse Ox
98.1 F 99 17 149/89 96
06/08/25 15:19 06/08/25 21:30 06/08/25 21:30 06/08/25 21:00 06/08/25 21:30
Physical Exam
General: Well Developed, Well Nourished and No Apparent Distress
HEENT: Normocephalic, Moist Mucous Membranes and Atraumatic
Respiratory: Clear
Cardiac: S1/S2 and Regular Rhythm; Negative Murmur or Rub
GI: Soft, Non Tender, Non Distended and Normal Bowel Sounds
Rectal: Deferred by Provider
Musculoskeletal: No Clubbing, No Cyanosis and No Edema
Skin: Negative Rash
Neuro: Nonfocal/Grossly Intact and Other (no sensation of legs and no strength of legs )
Laboratory Results
-
Laboratory Results
06/08/25 16:14
06/08/25 16:14
Total Bilirubin 1.3 mg/dl (0.2-1.3) 06/08/25 16:14
AST 25 U/L (17-59) 06/08/25 16:14
ALT 41 U/L (0-50) 06/08/25 16:14
Alkaline Phosphatase 95 U/L (38-126) 06/08/25 16:14
Data Reviewed
-
Lab Data: Labs Reviewed
Old Records: Reviewed
Impression / Plan
-
IMPRESSION:
PLAN:
# Seizure episodes likely due to recent decreased dose of amitriptyline
# History of seizures
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
- Neurology recommended cerebral and Ativan for further seizures
-Patient without any symptoms currently
- Continue Vimpat
-Continue amitriptyline
- Patient currently follows physicians at [facility] including Dr. Montano and Dr. Welsh however accepted for urgent transfer at [facility] where he originally had neurosurgery so that he could have MRI to rule out cauda equina since it cannot
be performed unless the intrathecal pain pump is emptied
Chronic back pain with intrathecal pain pump
History of traumatic spine with paraplegia injury status post spine surgery
- Recovered
History of paraplegia secondary to Moderna COVID-vaccine
- Recovered
B12 deficiency
Mild intermittent asthma
- Continue DuoNebs
Essential hypertension
- Continue Nebivolol
Anxiety/depression/PTSD
- Continue pregabalin
Traumatic brain injury
Chronic migraines
- Continue Ubrelvy
Obesity
History of bladder incontinence
Right ear deafness
Hyperlipidemia
- Continue statin, fenofibrate
Full code
DVT prophylaxis�heparin
Regular diet
--- NOTE | 2025-06-09 14:05 | W.RAPID.EEG ---
Rapid EEG
-
Procedure Date: 06/08/25
Patient Status: Emergency Room
Results:
Impression:
Absence of status epilepticus
Patient was recorded both awake and drowsy
Recording Information:
Diagnostic Recording Time: 01:22:30 (83 minutes)
Recording 1:
Start Time: Jun 08, 2025 19:17 PM End Time: Jun 08, 2025 20:40 PM
Recording Technique: This EEG was obtained using a 10 lead, 8 channel system positioned circumferentially without any parasagittal coverage (rapid EEG). Computer selected EEG is reviewed as well as background features and all clinically significant
events. Clarity algorithm utilized and implemented to provide analysis of underlying activity and seizure detection used to facilitate reading. ICD-10 Code JA06F42
Clinical History: STONE CONRAD is a 35 year old Prior Seizure patient undergoing EEG to screen for non-convulsive status epilepticus.
== END 2025-06-08 22:18 | disposition short-term general hospital (02) ==
LOC: EMR 15:12
PROVIDERS: EMERGENCY PHYSICIAN Student in an Organized Health Care Education/Training Program; FAMILY PHYSICIAN Family Medicine
DX: G40.909 Epilepsy, unspecified, not intractable, without status epilepticus (principal); R53.1 Weakness; I10 Essential (primary) hypertension; E78.00 Pure hypercholesterolemia, unspecified; J45.20 Mild intermittent asthma, uncomplicated; E53.8 Deficiency of other specified B group vitamins; F41.9 Anxiety disorder, unspecified; F32.A Depression, unspecified; F43.10 Post-traumatic stress disorder, unspecified; E66.9 Obesity, unspecified; Z68.41 Body mass index [BMI] 40.0-44.9, adult; M54.2 Cervicalgia; G89.29 Other chronic pain; G43.709 Chronic migraine without aura, not intractable, without status migrainosus; H91.91 Unspecified hearing loss, right ear; R32 Unspecified urinary incontinence; Z87.820 Personal history of traumatic brain injury; Z86.16 Personal history of COVID-19; Z87.891 Personal history of nicotine dependence; Z91.041 Radiographic dye allergy status; Z88.8 Allergy status to other drugs, medicaments and biological substances; Z82.49 Family history of ischemic heart disease and other diseases of the circulatory system
CPT/HCPCS: 99285; 80053; 85025; 95813